=== PATIENT | female | born 1980 | race Caucasian/White ===

== ENCOUNTER 2016-03-24 23:55 | Inpatient (IN) | payer OTHER ==
[2016-03-25] MEDS ORDERED: PROMETHAZINE HCL 25 MG in LR 1,000 ML IV PRN (02:49)
[2016-03-25] MEDS ORDERED: AMPICILLIN SODIUM 2 GM in NS 100 ML IV ONE (03:00)
[2016-03-25] MEDS ORDERED: LR 1,000 ML IV SCH (03:00)
[2016-03-25] MEDS ORDERED: PROMETHAZINE HCL 25 MG/ML INJ ONE (03:04)
[2016-03-25] MEDS ORDERED: fentaNYL 2MCG/ML/BUP 0.1% RTU 100 ML BAG EP ONE (07:45)
[2016-03-25] MEDS ORDERED: LR 1,000 ML IV PRN (07:45)
[2016-03-25] MEDS ORDERED: OXYTOCIN/RINGERS LACTATE 1,000 ML IV PRN (07:45)
[2016-03-25] MEDS ORDERED: BUPIVACAINE 0.25% 30 ML SDV ONE (07:45)
[2016-03-25] MEDS ORDERED: MINERAL OIL 60 ML OIL TP PRN (07:45)
[2016-03-25] MEDS ORDERED: LIDOCAINE 1% 30 ML SDV SC PRN (07:45)
[2016-03-25] MEDS ORDERED: EPSOM SALT 454 GM TP PRN (07:45)
[2016-03-25] MEDS ORDERED: TERBUTALINE SULFATE 1 MG/ML VIAL IV PRN (07:45)
[2016-03-25] MEDS ORDERED: IBUPROFEN 600 MG TAB PO PRN (07:45)
[2016-03-25] MEDS ORDERED: PHENYLEPHRINE HCL 100 MCG/ML SYR ONE (07:46)
[2016-03-25] MEDS ORDERED: LIDOCAINE 1% 30 ML SDV ONE (07:52)
[2016-03-25] MEDS ORDERED: MISOPROSTOL 200 MCG TAB ONE (07:53)
[2016-03-25] MEDS ORDERED: TERBUTALINE SULFATE 1 MG/ML VIAL ONE (07:53)
[2016-03-25] MEDS ORDERED: OXYTOCIN 10 UNIT/ML VIAL ONE (07:53)
[2016-03-25] MEDS ORDERED: AMMONIA AROMATIC 1 EACH AMP IH ONE (07:53)
[2016-03-25] MEDS: AMPICILLIN SODIUM 1 GM in NS 100 ML IV SCH ×3 (07:57→16:50)
[2016-03-25 08:00] LABS: % IMMATURE GRANULYOCYTES 0.7 % (0.0-1.1); ADD DIFF? NO; ADD MORPH? NO; ADD SCAN? NO; ATYPICAL LYMPHOCYTE FLAG 0 (0-99); FRAGMENT RBC FLAG 0 (0-99); HEMATOCRIT 37.7 % (38.0-47.0); LEFT SHIFT FLG 10 (0-99); LIPEMIA HEMOLYSIS FLAG 80 (0-99); MEAN CELL HEMOGLOBIN 29.6 pg (27.9-34.1); MEAN CELL HEMOGLOBIN CONCENTR. 31.8 g/dL (32.4-36.7); MEAN CELL VOLUME 92.9 fL (81.5-99.8); MEAN PLATELET VOLUME 11.8 fL (8.7-11.7); PLATELET CLUMPS FLAG 20 (0-99); PLATELET COUNT 186 10^3/uL (150-400); RED BLOOD CELL COUNT 4.06 10^6/uL (4.18-5.33); RED CELL DISTRIBUTION WIDTH 16.5 % (11.5-15.2)
--- NOTE | 2016-03-25 08:15 | PDGENHP ---
History and Physical - Chief Complaint 35 y.o. at 39 weeks in active labor - History of Present Illness 35 y.o. at 39 weeks in active labor. History Information - Allergies/Home Medication List Allergies/Adverse Reactions: No Known Allergies Allergy (Unverified 03/25/16 03:40) Home Medications: IRON 1 tab PO BID 03/25/16 [Last Taken Unknown] 1 tab PO DAILY 03/25/16 [Last Taken Unknown] I have personally reviewed and updated: family history, medical history, social history, surgical history Past Medical History: depression - Surgical History Reports: no pertinent surgical hx - Family History Positive for: diabetes type II, hypertension - Social History Smoking Status: Never smoked Alcohol Use: None Drug Use: None Review of Systems ROS: 10pt was reviewed & negative except for what was stated in HPI & below Constitutional: Reports: no symptoms EENMT: Reports: no symptoms Cardiac: Reports: no symptoms Respiratory: Reports: no symptoms Gastrointestinal: Reports: no symptoms Genitourinary: Reports: no symptoms Muscolosketal: Reports: no symptoms Skin: Reports: no symptoms Neurological: Reports: no symptoms Hematologic/Lymphatic: Reports: no symptoms Immunologic/Allergy: Reports: no symptoms Physical Exam Constitutional: appears nourished Eyes: PERRL Ears, Nose, Mouth, Throat: moist mucous membranes Cardiovascular: regular rate and rhythym, no murmur, rub, or gallop Respiratory: no respiratory distress, no rales or rhonchi Gastrointestinal: normoactive bowel sounds, soft, non-tender abdomen Genitourinary: no bladder fullness Skin: warm, normal color Musculoskeletal: full muscle strength Neurologic: AAOx3 Psychiatric: interacting appropriately Lab Data & Imaging Review 03/25/16 03:00 WBC 15.06 10^3/uL (3.80-9.50) H 03/25/16 03:00 RBC 4.06 10^6/uL (4.18-5.33) L 03/25/16 03:00 Hgb 12.0 g/dL (12.6-16.3) L 03/25/16 03:00 Hct 37.7 % (38.0-47.0) L 03/25/16 03:00 MCV 92.9 fL (81.5-99.8) 03/25/16 03:00 MCH 29.6 pg (27.9-34.1) 03/25/16 03:00 MCHC 31.8 g/dL (32.4-36.7) L 03/25/16 03:00 RDW 16.5 % (11.5-15.2) H 03/25/16 03:00 Plt Count 186 10^3/uL (150-400) 03/25/16 03:00 MPV 11.8 fL (8.7-11.7) H 03/25/16 03:00 Neut % (Auto) 82.8 % (39.3-74.2) H 03/25/16 03:00 Lymph % (Auto) 9.6 % (15.0-45.0) L 03/25/16 03:00 [place] % (Auto) 6.6 % (4.5-13.0) 03/25/16 03:00 Eos % (Auto) 0.1 % (0.6-7.6) L 03/25/16 03:00 Baso % (Auto) 0.2 % (0.3-1.7) L 03/25/16 03:00 Nucleat RBC Rel Count 0.0 % (0.0-0.2) 03/25/16 03:00 Absolute Neuts (auto) 12.48 10^3/uL (1.70-6.50) H 03/25/16 03:00 Absolute Lymphs (auto) 1.45 10^3/uL (1.00-3.00) 03/25/16 03:00 Absolute Monos (auto) 0.99 10^3/uL (0.30-0.80) H 03/25/16 03:00 Absolute Eos (auto) 0.01 10^3/uL (0.03-0.40) L 03/25/16 03:00 Absolute Basos (auto) 0.03 10^3/uL (0.02-0.10) 03/25/16 03:00 Absolute Nucleated RBC 0.00 10^3/uL (0-0.01) 03/25/16 03:00 Immature Gran % 0.7 % (0.0-1.1) 03/25/16 03:00 Immature Gran # 0.10 10^3/uL (0.00-0.10) 03/25/16 03:00 Assessment & Plan Assessment: 35 y.o. female at 39 weeks in active labor. VSS- afebrile. NST- reactive- CAT I. GBS + Plan: Admit to L&D. GBS prophylaxis. EFM and VS per protocol
--- NOTE | 2016-03-25 08:23 | OBPROG ---
OBG Progress Note Assessment/Plan: Assessment: 35 y.o. at 39 weeks in active labor. VSS- afebrile. NST- reactive- CAT I. GBS positive Plan: Admit to L&D. GBS prophylaxis with AMP. EFM and VS per protocol. 03/25/16 08:20 Subjective: Patient uncomfortable with UCs and requesting MARLENA. present at bedside. Objective: 03/25/16 03:00 - SVE Dilation (cm): 6 Effacement (%): 100 Station: -2 Current Contraction Pattern: Regular FHR (bpm): 130 FHR Pattern Variability: Moderate FHR Category: 1 Membranes: Intact - Physical Exam General Appearance: WD/WN, alert, no apparent distress Estimated Weight: 2501-3400g EENT: PERRL/EOMI Neck: non-tender, full range of motion Respiratory: chest non-tender, lungs clear Cardiac/Chest: regular rate, rhythm Abdomen: non-tender, soft Membranes: Intact Extremities: normal range of motion, non-tender Back: Normal inspection Skin: normal color, warm/dry Neuro/Psych: alert, normal mood/affect, oriented x 3 ICD10 Worksheet Patient Problems: Problems Problem Status Diagnosed Active labor at term Acute - ICD10 Problem Qualifiers (1) Active labor at term
--- NOTE | 2016-03-25 09:57 | PREANESOB ---
Obstetric Pre-Anesthesia Info - General Info : 1 Para: 0 - Info Status: Full Term - Labor Status Cervical Dilation per last OB SVE: 6 Station per last OB SVE: -2 Indications for Labor Analgesia: Pain Control Labor Epidural: Yes Anesthesia Allergies/Adverse Reactions: Allergy/AdvReac Type Severity Reaction Status Date / Time No Known Allergies Allergy Unverified 03/25/16 03:40 Home Medications: Medication Instructions Recorded IRON 1 tab PO BID 03/25/16 1 tab PO DAILY 03/25/16 Visit Medications: Generic Name Dose Route Start Last Admin Trade Name Freq PRN Reason Stop Dose Admin Lactated Ringer's 1,000 mls @ 0 mls/hr 03/25/16 03:00 Lr IV 09/21/16 02:59 AD PAMELA As Directed Promethazine HCl 25 mg/ 1,001 mls @ 0 mls/hr 03/25/16 02:49 03/25/16 03:05 Lactated Ringer's IV 09/21/16 02:48 1,001 mls AD PRN Administration Nausea/Vomiting, Can't Take PO As Directed Lactated Ringer's 1,000 mls @ 0 mls/hr 03/25/16 07:45 Lr IV 09/21/16 07:44 PRN PRN SEE PROTOCOL CONDITIONS Protocol Per Protocol Oxytocin/Lactated Ringer's 1,000 mls @ 150 mls/hr 03/25/16 07:45 Pitocin 20 Units/Lr (Premix) IV PRN PRN Post- bleeding Ampicillin Sodium 1 gm/ Sodium 100 mls @ 200 mls/hr 03/25/16 08:00 03/25/16 07: 57 Chloride IV 04/24/16 07:59 100 mls Q4H PAMELA Administration Protocol Ibuprofen 600 mg 03/25/16 07:45 Motrin PO 09/21/16 07:44 Q6HRS PRN post , inflammation Lidocaine HCl 30 ml 03/25/16 07:45 Lidocaine Hcl 1% SC 03/25/16 13:45 ONCE PRN Episiotomy Magnesium Sulfate 454 gm 03/25/16 07:45 Epsom Salt TP 09/21/16 07:44 PRN PRN Perineal Discomfort Mineral Oil 30 ml 03/25/16 07:45 Mineral Oil TP 03/25/16 13:45 ONCE PRN Perineal massage Terbutaline Sulfate 0.25 mg 03/25/16 07:45 Brethine IV 09/21/16 07:44 ONCE PRN Tachysystole Discontinued Medications Generic Name Dose Route Start Last Admin Trade Name Ginny PRN Reason Stop Dose Admin Ammonia (Aromatic Spirit) Confirm 03/25/16 07:53 Ammonia Aromatic Administered 03/25/16 07:54 Dose 1 each IH .STK-MED ONE Bupivacaine HCl Confirm 03/25/16 07:45 Sensorcaine 0.25% Sdv Administered 03/25/16 07:46 Dose 30 ml .ROUTE .STK-MED ONE Fentanyl/Bupivacaine HCl Confirm 03/25/16 07:45 Fentanyl/Bupivacaine/Ns 2 Mcg/Ml 0.1% (Premix Administered 03/25/16 07:46 Dose 100 ml EP .STK-MED ONE Ampicillin Sodium 2 gm/ Sodium 110 mls @ 220 mls/hr 03/25/16 03:00 03/25/16 03: 19 Chloride IV 03/25/16 03:29 110 mls ONCE ONE Administration Ampicillin Sodium 1 gm/ Sodium 100 mls @ 200 mls/hr 03/25/16 11:45 Chloride IV 04/24/16 11:44 Q4H PAMELA Protocol Lidocaine HCl Confirm 03/25/16 07:52 Lidocaine Hcl 1% Administered 03/25/16 07:53 Dose 30 ml .ROUTE .STK-MED ONE Misoprostol Confirm 03/25/16 07:53 Cytotec Administered 03/25/16 07:54 Dose 800 mcg .ROUTE .STK-MED ONE Morphine Sulfate 5 mg 03/25/16 03:00 03/25/16 03:10 Morphine IVP 03/25/16 03:01 5 mg ONCE ONE Administration Morphine Sulfate 10 mg 03/25/16 03:00 03/25/16 03:15 Morphine IM 03/25/16 03:01 10 mg ONCE ONE Administration Oxytocin Confirm 03/25/16 07:53 Pitocin Administered 03/25/16 07:54 Dose 40 unit .ROUTE .STK-MED ONE Phenylephrine HCl Confirm 03/25/16 07:46 Ezra-Synephrine Administered 03/25/16 07:47 Dose 1,000 mcg .ROUTE .STK-MED ONE Promethazine HCl Confirm 03/25/16 03:04 Phenergan Administered 03/25/16 03:05 Dose 25 mg .ROUTE .STK-MED ONE Terbutaline Sulfate Confirm 03/25/16 07:53 Brethine Administered 03/25/16 07:54 Dose 1 mg .ROUTE .STK-MED ONE - Anesthesia History Response to Local Anesthetics: Normal Anesthesia & Operative History: No Prior Problems Family Anesthesia History: Not Applicable - Social History Substance Use/Abuse: Denies - Focused Exam Blood Pressure: 119/63 Heart Rate: 93 Respiratory Rate: 18 Height/Weight (Nursing): Height 166.37 cm Weight 68.039 kg Weight: 68 kg Height: 166 cm Respiratory: chest non-tender, lungs clear, normal breath sounds Cardiovascular: normal peripheral pulses, regular rate, rhythm ASA Status: I Labs: 03/25/16 03:00 Patient ABO/Rh B POSITIVE 03/25/16 03:00 - Plan Anesthetic Plan: MARLENA Consent Signed and on Chart: Yes Patient/Guardian Understands and Agrees to Plan: Yes
[2016-03-25] MEDS ORDERED: LR 500 ML IV SCH (10:00)
[2016-03-25] MEDS ORDERED: AMPICILLIN SODIUM 1 GM in NS 100 ML IV SCH (11:45)
--- NOTE | 2016-03-25 12:33 | OBPROG ---
OBG Progress Note Assessment/Plan: Assessment: 35 y.o. at 39 weeks in active labor. VSS- afebrile. NST- reactive- CAT I. Adequate labor progress. GBS positive Plan: Continue GBS prophylaxis with AMP. EFM and VS per protocol. Anticipate 03/25/16 08:20 03/25/16 12:31 Subjective: Reports feeling comfortable with MARLENA in place. Objective: 03/25/16 03:00 Patient ABO/Rh B POSITIVE 03/25/16 03:00 Temp Pulse Resp BP Pulse Ox 93 18 119/63 03/25/16 09:59 03/25/16 09:59 03/25/16 09:59 - SVE Dilation (cm): 9 Effacement (%): 100 Station: 0 Current Contraction Pattern: Regular FHR (bpm): 140 FHR Pattern Variability: Minimal FHR Category: 1 Membranes: AROM Amniotic Fluid Color: Clear - Physical Exam General Appearance: WD/WN, alert, no apparent distress Estimated Weight: 2501-3400g EENT: normal ENT inspection Neck: non-tender, full range of motion Respiratory: lungs clear, normal breath sounds Cardiac/Chest: normal peripheral pulses, regular rate, rhythm Abdomen: normal bowel sounds, non-tender, soft Membranes: AROM Amniotic Fluid Color: clear Extremities: normal range of motion, non-tender Back: Normal inspection Skin: normal color, warm/dry Neuro/Psych: alert, normal mood/affect, oriented x 3 ICD10 Worksheet Patient Problems: Problems Problem Status Diagnosed Active labor at term Acute - ICD10 Problem Qualifiers (1) Active labor at term
[2016-03-25] MEDS ORDERED: OXYTOCIN/RINGERS LACTATE 500 ML IV SCH (15:00)
--- NOTE | 2016-03-25 15:32 | OBPROG ---
OBG Progress Note Assessment/Plan: Assessment: 39w1d Pushing to 3+ station direct OA presentation minimal FHR variability, variable decels with pushing Plan: reviewed plan of care with romel and her partner. She is pushing more effectively with coaching, however has been mostly minimal variability since 1: 00. Brief return to mod variability after scalp stim. Continue pushing, monitor closely and discussed recommendation for VAVD pending her ongoing progress and FHR tracing 03/25/16 15:29 Objective: 03/25/16 03:00 Patient ABO/Rh B POSITIVE 03/25/16 03:00 Temp Pulse Resp BP Pulse Ox 93 18 119/63 03/25/16 09:59 03/25/16 09:59 03/25/16 09:59 - SVE Dilation (cm): 10 Effacement (%): 100 Station: +3 Current Contraction Pattern: Regular FHR Pattern Variability: Minimal FHR Category: 2 Membranes: AROM Amniotic Fluid Color: Clear - Physical Exam Estimated Weight: 2501-3400g ICD10 Worksheet Patient Problems: Problems Problem Status Diagnosed Active labor at term Acute
[2016-03-25] MEDS ORDERED: fentaNYL 100 MCG/2 ML INJ ONE (16:03)
[2016-03-25 16:33] LABS: BASE EXCESS CORD -7.6 mEq/L (-13.6--3.2); CORD BLOOD PCO2 48.3 mmHg (37-60); PH ARTERIAL CORD BLOOD 7.24 (7.10-7.37)
[2016-03-25 16:36] LABS: PH VENOUS CORD BLOOD 7.36 (7.20-7.42)
[2016-03-25] MEDS ORDERED: METHYLERGONOVINE MAL 0.2 MG/ML INJ ONE (16:53)
[2016-03-25] MEDS ORDERED: HYDROCODONE/APAP 5/325 TAB PO PRN (17:46)
[2016-03-25] MEDS ORDERED: SIMETHICONE 80 MG TAB CHEW PO PRN (17:46)
[2016-03-25] MEDS ORDERED: DOCUSATE SODIUM 100 MG CAP PO PRN (17:46)
[2016-03-25] MEDS ORDERED: HYDROCORTISONE 0.5% CREAM TP PRN (17:46)
--- NOTE | 2016-03-25 17:59 | OBPROC ---
- Labor and Delivery Onset of Contractions Date: 03/24/16 Onset of Contractions Type: Spontaneous Rupture of Membranes Date: 03/25/16 Rupture of Membranes Type: Artificial Amniotic Fluid Color: Clear Delivery Type: Spontaneous Placenta Delivery Date: 03/25/16 Episiotomy/Laceration: 2nd Degree, Other (Specify) (bilateral labial) EBL: 750 Complications: Post Hemorrhage, Uterine Atony Cord Gases: Cord Gases Cord Blood PCO2 48.3 mmHg (37-60) 03/25/16 15:56 Cord Base Excess -7.6 mEq/L (-13.6--3.2) 03/25/16 15:56 Cord ABG pH 7.24 (7.10-7.37) 03/25/16 15:56 Cord VBG pH 7.36 (7.20-7.42) 03/25/16 15:56 - Medications Labor Augmentation/Induction Meds Used: None Anesthesia: Epidural - [place] Info A Delivery Date: 03/25/16 Delivery Time: 15:56 Sex of Infant: Female Score (1 Min): 8 Score (5 Min): 8
[2016-03-25] MEDS: IBUPROFEN 600 MG TAB PO PRN (22:55)
[2016-03-26] MEDS: IBUPROFEN 600 MG TAB PO PRN ×4 (05:03→23:05)
--- NOTE | 2016-03-26 12:37 | SOAPPROG ---
SOAP Progress Note Assessment/Plan: Assessment: Term at 39w1d, G1 now P1 Doing well Bleeding appropriate, expected drop in H/H after EBL 750 from PPH Denies symptoms of anemia Rh+, Rub imm, s/p Tdap and flu vaccines Plan: General precautions discussed Plan home tomorrow Continue to work with Reviewed what to expect at home, also signs of depression. 03/25/16 15:29 03/26/16 12:34 Subjective: Baby is sleeping a lot so they feel really rested. Just got up and took a shower. Bleeding is not heavy. Milk hasn't come in yet. Pain controlled with ibuprofen. Stinging a little when she pees but is already getting better. Objective: Vital Signs Temp Pulse Resp BP Pulse Ox 36.6 C 74 16 82/58 L 94 03/26/16 08:03 03/26/16 08:03 03/26/16 08:03 03/26/16 08:03 03/25/16 20:00 Laboratory Results 03/26/16 04:30 03/25/16 03/26/16 03/27/16 05:59 05:59 05:59 Output Total 1500 Balance -1500 Gen: up and walking around, alert, awake, NAD Breasts: soft Resp: unlabored Abd: soft, nontender, uterus firm below umbilicus Ext: warm, minimal edema ICD10 Worksheet Patient Problems: Problems Problem Status Diagnosed hemorrhage Acute Vaginal delivery Acute Active labor at term Acute - ICD10 Problem Qualifiers (1) Vaginal delivery (2) hemorrhage (3) Active labor at term
[2016-03-26 20:22] VITALS: O2SAT 93
[2016-03-27 08:49] VITALS: BP 94/65; PULSE 76; RESP 18; TEMP 96.6
--- NOTE | 2016-03-27 10:03 | SOAPPROG ---
SOAP Progress Note Assessment/Plan: Assessment: Term at 39w1d, G1 now P1, PPD#2 Stable for discharge home Doing well Bleeding appropriate, expected drop in H/H after EBL 750 from PPH Denies symptoms of anemia Rh+, Rub imm, s/p Tdap and flu vaccines Plan: General precautions discussed Continue to work with Reviewed what to expect at home, also signs of depression. RTC 4 week wellness visit and 6 week visit Baby is not discharged due to minimal feeding and episode of vomiting last night , plan home for baby with parents tomorrow who will stay as boarders today 03/25/16 15:29 03/26/16 12:34 03/27/16 10:00 Subjective: Baby is feeding for the first time this morning, given a bottle last night and had projectile vomiting. Baby will stay admitted overnight tonight per Peds for further eval. Mom is otherwise feeling well, minimal bleeding, pain, etc. Energy is still good, no dizziness or weakness with ambulating. Objective: Vital Signs Temp Pulse Resp BP Pulse Ox 35.9 C L 76 18 94/65 L 93 03/27/16 08:43 03/27/16 08:43 03/27/16 08:43 03/27/16 08:43 03/26/16 20:10 Laboratory Results 03/26/16 04:30 03/26/16 03/27/16 03/28/16 05:59 05:59 05:59 Output Total 1500 Balance -1500 Gen: Alert, awake, NAD Breasts: soft Resp: unlabored CV: regular rhythm Abd: soft, nontender, uterus firm below U [place]: well healing perineum Ext: no edema ICD10 Worksheet Patient Problems: Problems Problem Status Diagnosed hemorrhage Acute Vaginal delivery Acute Active labor at term Acute - ICD10 Problem Qualifiers (1) Vaginal delivery (2) hemorrhage (3) Active labor at term
[2016-03-27] MEDS: IBUPROFEN 600 MG TAB PO PRN (12:43)
== END 2016-03-27 16:00 | disposition home or self-care (01) | DRG 774 ==
LOC: FLD 23:55 → OBSVTOIN 03-25 07:45 → FOB 03-25 18:36
PROVIDERS: ADMIT Obstetrics & Gynecology; ATTEND Obstetrics & Gynecology
PROC: 3E0E7GC Introduction of Other Therapeutic Substance into Products of Conception, Via Natural or Artificial Opening (ICD-10-PCS; principal; 2016-03-25)
PROC: 10907ZC Drainage of Amniotic Fluid, Therapeutic from Products of Conception, Via Natural or Artificial Opening (ICD-10-PCS; principal; 2016-03-25)
PROC: 0KQM0ZZ Repair Perineum Muscle, Open Approach (ICD-10-PCS; principal; 2016-03-25)
PROC: 10E0XZZ Delivery of Products of Conception, External Approach (ICD-10-PCS; principal; 2016-03-25)
DX: O70.1 Second degree perineal laceration during delivery (principal); O72.1 Other immediate postpartum hemorrhage; O09.513 Supervision of elderly primigravida, third trimester; O99.820 Streptococcus B carrier state complicating pregnancy; Z22.330 Carrier of Group B streptococcus; Z3A.39 39 weeks gestation of pregnancy; Z37.0 Single live birth
CPT/HCPCS: J0290; J2210; J2370; J2550; J2590; J3010; J3105